=== PATIENT | female | born 1940 | race Caucasian/White ===

== ENCOUNTER 2019-12-16 11:49 | Emergency (ER) | payer MEDICARE, SELFPAY ==
--- NOTE | 2019-12-16 12:03 | ED_ITS ---
HPI - Headache General Stated Complaint: Headache Related Data Home Medications Medication Instructions Recorded Confirmed rivaroxaban 20 mg tablet 20 mg PO DAILY 06/07/19 06/07/19 Allergies Allergy/AdvReac Type Severity Reaction Status Date / Time No Known Allergies Allergy Unverified 12/06/19 09:04 [facility] Social History Social History Smoking status: Never smoker Alcohol intake: never MDM - Headache MDM Narrative Medical decision making narrative: Patient was made aware prior to triage that she would have to go to the ER for further evaluation with head CT due to recent fall and chronic headache since the injury, approximately 10 days ago. Patient refused to continue check-in and triage and wanted to go straight to the emergency room to avoid a weight. Patient was alert, ambulating without difficulty, and no obvious neuro defect notable. Patient left via private car with her . stated they would be going to [facility]. Discharge Plan Discharge Prescriptions: No Action albuterol sulfate [Ventolin HFA] 90 mcg/actuation HFA aerosol inhaler 2 puff INHALATION Q4H PRN (Reason: shortness of breath or wheezing) Qty: 6.7 RF: 1 Xarelto 20 mg tablet 20 mg PO DAILY RF: 0 rosuvastatin 10 mg tablet 10 mg PO DAILY Qty: 90 RF: 3 valsartan-hydrochlorothiazide 320-12.5 mg tablet 1 tablet PO DAILY Qty: 90 RF: 3 zafirlukast 20 mg tablet 20 mg PO Q12H Qty: 180 RF: 3 donepezil [Aricept] 10 mg tablet 10 mg PO ONCE Qty: 90 RF: 3 diltiazem HCl [Cardizem CD] 240 mg capsule,extended release 24hr 240 mg PO DAILY Qty: 90 RF: 3 budesonide-formoterol [Symbicort] 160-4.5 mcg/actuation HFA aerosol inhaler See Rx Instructions .ROUTE .COMPLEX Qty: 10.2 RF: 1 levothyroxine [Synthroid] 88 mcg tablet 88 mcg PO DAILY Qty: 90 RF: 1 memantine [Namenda] 5 mg tablet 5 mg PO QAM Qty: 90 RF: 2 mirtazapine 15 mg tablet See Rx Instructions .ROUTE .COMPLEX Qty: 90 RF: 1
--- NOTE | 2019-12-16 12:03 | PC.NURSE ---
Decided to go to the ER see [place] [facility] note
== END 2019-12-16 12:03 | disposition left against medical advice (07) ==
LOC: EXPGLEN 11:54
PROVIDERS: Emergency Provider Nurse Practitioner Family; PCP Internal Medicine
DX: Z53.21 Procedure and treatment not carried out due to patient leaving prior to being seen by health care provider (principal)
CPT/HCPCS: 99199

== ENCOUNTER 2019-12-16 12:14 | Emergency (ER) | payer MEDICARE, SELFPAY ==
--- NOTE | ~2019-12-16 | CT_ITS ---
EXAMINATION: CT brain wo con INDICATION: Head injury COMPARISON: 08/01/2017 TECHNIQUE: Standard unenhanced head CT. The dose-length product (DLP) was 605.33 mGy-cm. The mA was a djusted according to patient size. Iterative reconstruction technique was employed. FINDINGS: There is no acute intraparenchymal hemorrhage. No evidence of mass lesion. No evidence of a cute infarction. There is mild periventricular and subcortical hypodensity probably related to small vessel ischemic disease. There is mild prominence of the sulci and ventricles related to cerebral atr ophy. Intracranial calcified cerebral atherosclerosis is noted. There are no extra-axial collections. There is no mass effect or midline shift. The orbits and soft tissues are unremarkable. There is ne ar complete opacification of the visualized paranasal sinuses. The mastoid air cells are completely o pacified. IMPRESSION: 1. No acute intracranial abnormality. 2. Sinusitis and mastoiditis. Reviewed, dictated and finalized at location A.
--- NOTE | ~2019-12-16 | CT_ITS ---
EXAMINATION: CT cervical spine wo con DATE: 12/16/2019 12:59 INDICATION: Head injury TECHNIQUE: Computed tomography (CT) of the cervical spine was performed without intravenous contrast. The dose-length product (DLP) was 379.34 mGy-cm. Automated exposure control and iterative reconstruc tion technique were employed. COMPARISON: None FINDINGS: There are 2 mm of anterolisthesis of C4 on C5 and 2 mm of retrolisthesis of C6 on C7. There is near complete loss of intervertebral disc space height at C5-6 and C6-7. The vertebral body heigh ts are maintained. The odontoid is intact. There is moderate to severe multilevel facet and uncoverte bral joint osteoarthritis. The prevertebral soft tissues are normal. Small degenerative osteophytes p roject from the anterior endplates of multiple vertebral bodies. IMPRESSION: 1. Moderate to severe cervical spondylosis without acute findings. Reviewed, dictated and finalized at location A.
[2019-12-16 12:18] VITALS: BP 119/94; PULSE 57; RESP 16; TEMP 36.4; O2SAT 100
[2019-12-16 13:11] LABS: Basophils Absolute Auto 0.1 K/mm3 (0.0-0.1); Basophils Percent Auto 0.5 % (0.2-1.2); Eosinophils Absolute Auto 0.4 K/mm3 (0-0.3); Eosinophils Percent Auto 4.1 % (0-4.4); Hematocrit 41.2 % (37.0-47.0); Hemoglobin 13.4 g/dL (12.0-15.0); Immature Granulocyte Absolute 0.03 K/mm3 (0.00-0.031); Immature Granulocyte Percent A 0.3 % (0-0.5); Lymphocytes Absolute Auto 1.32 K/mm3 (0.9-3.2); Lymphocytes Percent Auto 14.1 % (18.3-44.2); Mean Corpuscular HGB Conc 32.5 g/dl (32-36); Mean Corpuscular Hemoglobin 32.4 pg (26-34); Mean Corpuscular Volume 99.5 fl (80-100); Mean Platelet Volume 11.3 fl (7.4-10.4); Monocytes Absolute Auto 0.8 K/mm3 (0.1-0.6); Neutrophils Absolute Auto 6.7 K/mm3 (1.3-6.7); Platelet Count Result 269 k/mm3 (150-375); Red Blood Count 4.14 M/mm3 (4.2-5.4); White Blood Count 9.4 K/mm3 (4.5-10.0)
[2019-12-16 13:22] LABS: Alanine Aminotransferase 23 U/L (4-35); Albumin Level 3.9 g/dL (3.5-5.1); Alkaline Phosphatase 96 U/L (38-126); Anion Gap 9.1 mmol/L (7-16); Aspartate Amino Transferase 24 U/L (14-36); Bilirubin,Total 0.4 mg/dL (0.2-1.3); Blood Urea Nitrogen 21 mg/dL (7-17); Carbon Dioxide 28 mmol/L (22-30); Chloride 105 mmol/L (98-107); Estimated CRCL calculation 46 ml/min; Estimated Glomerular Filt Rate 60; Glucose 133 mg/dL (65-105); INR 1.8; Potassium 4.1 mmol/L (3.4-5.0); Prothrombin Time 20.4 Seconds (11.1-14.7); Sodium 138 mmol/L (137-145)
[2019-12-16 13:23] LABS: Partial Thromboplastin Time 39.9 SECONDS (22.3-36.8)
[2019-12-16 13:32] VITALS: BP 142/80; PULSE 62; RESP 11; O2SAT 100
--- NOTE | 2019-12-16 13:50 | PC.NURSE ---
ERP at bedside for assessment.
[2019-12-16 13:52] VITALS: BP 153/76; PULSE 58; RESP 13; O2SAT 99
--- NOTE | 2019-12-16 13:57 | ED.HA ---
HPI - Headache General Chief Complaint: Headache Stated Complaint: headache, fell and hit head 10 days ago Time Seen by Provider: 12/16/19 13:35 History of Present Illness HPI Narrative: fall 10 days ago. Struck the back of her head and upper back. She has had posterior headache since the fall. She tried tylenol with mild improvement. No weakness, numbness, syncope. She is on xarelto Related Data Home Medications Medication Instructions Recorded Confirmed rivaroxaban 20 mg tablet 20 mg PO DAILY 06/07/19 06/07/19 ergocalciferol (vitamin D2) WEEKLY 12/16/19 [Vitamin D2] omega 1-ipr-qbm-fish oil [Fish Oil] cap PO HS 12/16/19 rivaroxaban [Xarelto] mg DAILY 12/16/19 Allergies Allergy/AdvReac Type Severity Reaction Status Date / Time No Known Allergies Allergy Verified 12/16/19 12:23 Review of Systems Review of Systems: All systems reviewed & are unremarkable except as noted in HPI and below Constitutional: Constitutional: Denies chills, Denies fatigue, Denies fever(s) and Denies weakness Eyes: Eyes: Denies change in vision ENT: Denies sore throat Cardiovascular: Cardiovascular: Denies chest pain Respiratory: Respiratory: Denies cough and Denies dyspnea Gastrointestinal: Gastrointestinal: Denies nausea and Denies vomiting Musculoskeletal: Musculoskeletal: Reports back pain Neurologic: Denies vertigo, Denies dizziness, Denies syncope and Reports headache(s) [facility] Social History Social History Smoking status: Never smoker Alcohol intake: never Gender identity (if verbalized by the patient): Female Exam Const: General: healthy appearing, no acute distress and alert Orientation/consciousness: patient oriented x3 HENMT: Other: Posterior scalp tenderness. No mastoid tenderness. No sinus tenderness. Eyes: Conjunctivae: conjunctivae normal Pupils: Equal, round and reactive pupils present EOM: EOMs intact bilaterally Neck: Neck: normal visual inspection and no lymphadenopathy Chest: Chest palpation & inspection: no tenderness Resp: Effort & Inspection: normal respiratory effort Auscultation: clear to auscultation bilaterally, no rales, no rhonchi and no wheezes Cardio: Jugular venous distension: no JVD Rate: regular rate Rhythm: regular rhythm Heart sounds: no murmurs GI: Inspection: non-distended GI Palp: Yes Soft to palpation and No Tenderness to palpation present (GI) Skin: General skin exam: normal color Neuro: General: patient oriented x3, moves all extremities and CN's II-XI intact bilaterally Speech: normal speech Extrem: General: no edema Psych: Appearance: well kempt Affect: normal affect Course Vital Signs Vital signs: Vital Signs Temperature 36.4 C L 12/16/19 12:18 Pulse Rate 57 L 12/16/19 12:18 Respiratory Rate 16 12/16/19 12:18 Blood Pressure 119/94 H 12/16/19 12:18 Pulse Oximetry 100 12/16/19 12:18 Temperature 36.4 C L 12/16/19 12:18 Pulse Rate 61 12/16/19 14:40 Respiratory Rate 16 12/16/19 14:40 Blood Pressure 140/70 12/16/19 14:40 Pulse Oximetry 97 12/16/19 14:40 MDM - Headache MDM Narrative Medical decision making narrative: CT shows sinusitis and mastoiditis. She reports chronic sinus congestion which is not currently bothering her. I believe this a chronic finding and does not require any treatment if she is not symptomatic. Based on symptom description I believe that she is having headaches due to muscle tightness. She is not able to take NSAIDs. I will prescribe a small amount fiorcet Medical Records Attestation: I reviewed the patient's medical records. Lab Data Attestation: I reviewed the patient's lab results. Result diagrams: 12/16/19 13:04 12/16/19 13:04 Labs: Lab Results 12/16/19 12/16/19 12/16/19 Range/Units 13:04 13:04 13:04 WBC 9.4 (4.5-10.0) K/mm3 RBC 4.14 L (4.2-5.4) M/mm3 Hgb 13.4 (12.0-15.0)
[2019-12-16 14:23] VITALS: BP 140/70; PULSE 61; RESP 13; O2SAT 98
[2019-12-16 14:40] VITALS: BP 140/70; PULSE 61; RESP 16; O2SAT 97
== END 2019-12-16 14:42 | disposition home or self-care (01) ==
PROVIDERS: Emergency Medicine; Emergency Provider Emergency Medicine; PCP Internal Medicine
DX: J32.9 Chronic sinusitis, unspecified (principal); R51 Headache; M47.812 Spondylosis without myelopathy or radiculopathy, cervical region; Z79.01 Long term (current) use of anticoagulants; I48.91 Unspecified atrial fibrillation; J45.909 Unspecified asthma, uncomplicated
CPT/HCPCS: 36415; 70450; 72125; 80053; 85025; 85610; 85730; 99284; A9270

== ENCOUNTER → 2020-10-09 12:51 | Emergency (ER) | payer MEDICARE, SELFPAY ==
--- NOTE | 2020-10-09 12:55 | ED_ITS ---
HPI - Chest Pain General Stated Complaint: chest pain Related Data Home Medications Medication Instructions Recorded Confirmed ergocalciferol (vitamin D2) WEEKLY 12/16/19 08/04/20 [Vitamin D2] omega 8-vsk-pzr-fish oil [Fish Oil] cap PO HS 12/16/19 08/04/20 Allergies Allergy/AdvReac Type Severity Reaction Status Date / Time No Known Allergies Allergy Verified 08/04/20 08:30 PMF Family History Family History Father Patient's father is Acute myocardial infarction Family history of heart disease in male family member before age 55 Mother Cerebrovascular accident Social History Social History Alcohol intake: never Gender identity (if verbalized by the patient): Female MDM - Chest Pain MDM Narrative Medical decision making narrative: Patient's spouse signed patient in to seen for cardiac consultation expecting blood work and was told blood work was not offered. Patient's spouse stated that she was recently seen by her director peoplesoft and everything checked out . However spouse was assuming she was going to have a cardiac work-up at the facility. Patient requested to go to the ER prior to triage. Patient was advised to be seen in the facility and transferred to ER but chose not waste the time . Patient was in n distress and spouse stated he will take to her ER, [facility]. Discharge Plan Discharge Patient Disposition: Left Without Being Sn Triaged Prescriptions: No Action donepezil [Aricept] 10 mg tablet 10 mg PO ONCE Qty: 90 RF: 2 albuterol sulfate [Ventolin HFA] 90 mcg/actuation HFA aerosol inhaler 2 puff INHALATION Q4H PRN (Reason: shortness of breath or wheezing) Qty: 6.7 RF: 1 omega 4-qrt-bsg-fish oil [Fish Oil] 1,200 (144-216) mg Capsule PO HS RF: 0 ergocalciferol (vitamin D2) [Vitamin D2] 1,250 mcg (50,000 unit) Capsule WEEKLY RF: 0 hwlfnvikvy-fqyvfpzmqmwur-wuei 50-325-40 mg capsule 1 cap PO Q6H PRN (Reason: pain) Qty: 10 RF: 0 Xarelto 20 mg tablet 20 mg PO DAILY Qty: 90 RF: 3 valsartan-hydrochlorothiazide 320-12.5 mg tablet 1 tablet PO DAILY Qty: 90 RF: 3 mirtazapine 15 mg tablet See Rx Instructions .ROUTE .COMPLEX Qty: 90 RF: 3 diltiazem HCl [Cardizem CD] 240 mg capsule,extended release 24hr 240 mg PO DAILY Qty: 90 RF: 3 zafirlukast 20 mg tablet See Rx Instructions .ROUTE .COMPLEX Qty: 180 RF: 3 budesonide-formoterol [Symbicort] 160-4.5 mcg/actuation HFA aerosol inhaler See Rx Instructions .ROUTE .COMPLEX Qty: 10.2 RF: 1 rosuvastatin 10 mg tablet See Rx Instructions .ROUTE .COMPLEX Qty: 90 RF: 3 levothyroxine 88 mcg tablet See Rx Instructions .ROUTE .COMPLEX Qty: 90 RF: 1 memantine [Namenda] 5 mg tablet 5 mg PO QAM Qty: 90 RF: 2 Follow-up/Referrals: UNKNOWN,DOCTOR [Non-Staff] - Time of Disposition: 12:55
== END | disposition left against medical advice (07) ==
LOC: EXPGLEN 12:56
PROVIDERS: Emergency Provider Nurse Practitioner Family; PCP Internal Medicine
DX: Z53.21 Procedure and treatment not carried out due to patient leaving prior to being seen by health care provider (principal)
CPT/HCPCS: 99199

== ENCOUNTER 2020-10-09 13:13 | Emergency (ER) | payer MEDICARE, SELFPAY ==
[2020-10-09] VITALS (21 sets, daily range): BP systolic 141–159; BP diastolic 80–103; PULSE 61–79; RESP 11–23; TEMP 36.5; O2SAT 97–100
--- NOTE | ~2020-10-09 | XR_ITS ---
EXAMINATION: XR chest 2V DATE: 10/09/2020 13:48 INDICATION: Midline chest pain. TECHNIQUE: Frontal and lateral views of the chest were obtained. COMPARISON: Chest 2 views 07/17/2018 FINDINGS: There is mild atelectasis in the lower lung zones. No pleural effusion or pneumothorax. The heart size is normal. IMPRESSION: 1. Mild atelectasis in the lower lung zones. Reviewed, dictated and finalized at location A.
--- NOTE | 2020-10-09 13:19 | ECG_ITS ---
Measurements Intervals [place] Rate: 72 P: [place]: 0 QRS: 31 QRSD: 73 T: -11 QT: 382 QTc: 421 Interpretive Statements ATRIAL FIBRILLATION LOW QRS VOLTAGE IN PRECORDIAL LEADS BASELINE ARTIFACT- I, II, III, AVR, AVF, V3 ABNORMAL ECG Electronically Signed On 10-09-2020 15:30:58 CDT by Aneehs Santa D.O.
--- NOTE | 2020-10-09 13:35 | ED.SOB ---
HPI - SOB/Dyspnea General Chief Complaint: Chest Pain Stated Complaint: chest pain Time Seen by Provider: 10/09/20 13:21 Source: patient Mode of arrival: ambulatory Limitations: no limitations Related Data Home Medications Medication Instructions Recorded Confirmed ergocalciferol (vitamin D2) WEEKLY 12/16/19 08/04/20 [Vitamin D2] omega 8-dkn-jug-fish oil [Fish Oil] cap PO HS 12/16/19 08/04/20 Allergies Allergy/AdvReac Type Severity Reaction Status Date / Time No Known Allergies Allergy Verified 08/04/20 08:30 PMFSH Family History Family History Father Patient's father is Acute myocardial infarction Family history of heart disease in male family member before age 55 Mother Cerebrovascular accident Social History Social History Alcohol intake: never Gender identity (if verbalized by the patient): Female Course Vital Signs Vital signs: Vital Signs Temperature 36.5 C 10/09/20 13:20 Pulse Rate 64 10/09/20 13:20 Respiratory Rate 14 10/09/20 13:20 Blood Pressure 159/84 H 10/09/20 13:20 Pulse Oximetry 99 10/09/20 13:20 Temperature 36.5 C 10/09/20 13:20 Pulse Rate 64 10/09/20 13:20 Respiratory Rate 14 10/09/20 13:20 Blood Pressure 159/84 H 10/09/20 13:20 Pulse Oximetry 99 10/09/20 13:20 MDM - SOB/Dyspnea Lab Data Result diagrams: 10/09/20 13:29 10/09/20 13:29 Labs: Lab Results 10/09/20 10/09/20 10/09/20 Range/Units 13:29 13:29 13:29 WBC Pending RBC Pending Hgb Pending Hct Pending MCV Pending MCH Pending MCHC Pending RDW Pending Plt Count Pending MPV Pending Immature Gran % (Auto) Pending Neut % (Auto) Pending Lymph % (Auto) Pending [place] % (Auto) Pending Eos % (Auto) Pending Baso % (Auto) Pending Lymph # (Auto) Pending [place] # (Auto) Pending Eos # (Auto) Pending Baso # (Auto) Pending Abs Immat Gran (auto) Pending Absolute Neuts (auto) Pending Absolute Nucleated RBC Pending Nucleated RBC % Pending PT Pending INR Pending APTT Pending Sodium Pending Potassium Pending Chloride Pending Carbon Dioxide Pending Anion Gap Pending BUN Pending Creatinine Pending Estim Creat Clear Calc Pending Estimated GFR Pending Glucose Pending Calcium Pending Troponin I Pending Discharge Plan Discharge Prescriptions: No Action donepezil [Aricept] 10 mg tablet 10 mg PO ONCE Qty: 90 RF: 2 albuterol sulfate [Ventolin HFA] 90 mcg/actuation HFA aerosol inhaler 2 puff INHALATION Q4H PRN (Reason: shortness of breath or wheezing) Qty: 6.7 RF: 1 omega 7-alw-gqg-fish oil [Fish Oil] 1,200 (144-216) mg Capsule PO HS RF: 0 ergocalciferol (vitamin D2) [Vitamin D2] 1,250 mcg (50,000 unit) Capsule WEEKLY RF: 0 bordiqonui-yulozwqbmdcil-hfdf 50-325-40 mg capsule 1 cap PO Q6H PRN (Reason: pain) Qty: 10 RF: 0 Xarelto 20 mg tablet 20 mg PO DAILY Qty: 90 RF: 3 valsartan-hydrochlorothiazide 320-12.5 mg tablet 1 tablet PO DAILY Qty: 90 RF: 3 mirtazapine 15 mg tablet See Rx Instructions .ROUTE .COMPLEX Qty: 90 RF: 3 diltiazem HCl [Cardizem CD] 240 mg capsule,extended release 24hr 240 mg PO DAILY Qty: 90 RF: 3 zafirlukast 20 mg tablet See Rx Instructions .ROUTE .COMPLEX Qty: 180 RF: 3 budesonide-formoterol [Symbicort] 160-4.5 mcg/actuation HFA aerosol inhaler See Rx Instructions .ROUTE .COMPLEX Qty: 10.2 RF: 1 rosuvastatin 10 mg tablet See Rx Instructions .ROUTE .COMPLEX Qty: 90 RF: 3 levothyroxine 88 mcg tablet See Rx Instructions .ROUTE .COMPLEX Qty: 90 RF: 1 memantine [Namenda] 5 mg tablet 5 mg PO QAM Qty: 90 RF: 2
--- NOTE | 2020-10-09 13:35 | ED.CHESTPAIN ---
HPI - Chest Pain General Chief Complaint: Chest Pain Stated Complaint: chest pain Time Seen by Provider: 10/09/20 13:21 Source: patient Mode of arrival: ambulatory Limitations: no limitations History of Present Illness HPI narrative: Patient is an 80-year-old female complaining of chest pain, substernal, sharp, nonradiating, worse with deep breaths, 5 out of 10, currently denies any pain, accompanied by shortness of breath that started 3 days ago. states that the patient recently saw her web support engineer and was told that her heart is good . Patient currently denies any symptoms, denies any chest pain or shortness of breath at this time. Patient denies any abdominal pain, nausea, vomiting, diaphoresis, fever or chills. Patient has a history of atrial fib and currently on Xarelto. Related Data Home Medications Medication Instructions Recorded Confirmed ergocalciferol (vitamin D2) WEEKLY 12/16/19 08/04/20 [Vitamin D2] omega 5-qiv-fpc-fish oil [Fish Oil] cap PO HS 12/16/19 08/04/20 Allergies Allergy/AdvReac Type Severity Reaction Status Date / Time No Known Allergies Allergy Verified 08/04/20 08:30 Review of Systems Review of Systems: All systems reviewed & are unremarkable except as noted in HPI and below Constitutional: Constitutional: Denies body ache(s), Denies chills, Denies excessive sweating, Denies fatigue, Denies fever(s), Denies headache(s), Denies lethargy, Denies malaise, Denies weakness and Denies weight loss Eyes: Eyes: Denies blurry vision, Denies change in vision and Denies loss of vision ENT: Denies dizziness, Denies ear discharge, Denies headache(s), Denies lip swelling, Denies epistaxis, Denies nasal congestion, Denies neck pain, Denies throat swelling and Denies tongue swelling Cardiovascular: Cardiovascular: Denies chest pain with activity, Denies diaphoresis, Denies rapid heart rate, Denies edema, Denies irregular heart rhythm, Denies lightheadedness, Denies palpitations and Denies dyspnea on exertion Respiratory: Respiratory: Denies chest congestion, Denies cough, Denies hemoptysis and Denies dyspnea on exertion Gastrointestinal: Gastrointestinal: Denies abdominal pain, Denies melena, Denies hematochezia, Denies diarrhea, Denies nausea, Denies vomiting and Denies hematemesis Musculoskeletal: Musculoskeletal: Denies abnormal gait, Denies deformity, Denies joint swelling, Denies limited range of motion, Denies neck pain and Denies numbness Neurologic: Denies Abnormal speech present, Denies abnormal gait, Denies confusion, Denies dizziness, Denies headache(s), Denies focal weakness, Denies loss of vision, Denies numbness, Denies Other visual disturbances, Denies Sensory deficit (Neuro) and Denies weakness Psychiatric: Psychiatric: Denies confusion, Denies depression, Denies auditory hallucinations, Denies homicidal ideation and Denies suicidal ideation Endocrine: Endocrine: Denies cold intolerance, Denies excessive sweating, Denies fatigue, Denies heat intolerance and Denies palpitations Hematologic/Lymphatic: Hematologic/Lymphatic: Denies easy bleeding and Denies easy bruising Allergic/Immunologic: Allergic/Immunologic: Denies lip swelling, Denies throat swelling and Denies tongue swelling PMFSH Family History Family History Father Patient's father is Acute myocardial infarction Family history of heart disease in male family member before age 55 Mother Cerebrovascular accident Social History Social History Alcohol intake: never Gender identity (if verbalized by the patient): Female Comments Past medical history: Atrial fib, hypertension, hyperlipidemia, dementia Family history: Noncontributory Social history: None smoker no EtOH use, lives with at home Exam Const: General: cooperative, healthy appearing, comfortable, no acute distress, well developed,
[2020-10-09 13:37] LABS: Basophils Absolute Auto 0.1 K/mm3 (0.0-0.1); Basophils Percent Auto 0.5 % (0.2-1.2); Eosinophils Absolute Auto 0.4 K/mm3 (0-0.3); Eosinophils Percent Auto 3.8 % (0-4.4); Hematocrit 45.4 % (37.0-47.0); Hemoglobin 14.9 g/dL (12.0-15.0); Immature Granulocyte Absolute 0.04 K/mm3 (0.00-0.031); Immature Granulocyte Percent A 0.3 % (0-0.5); Lymphocytes Percent Auto 13.8 % (18.3-44.2); Mean Corpuscular HGB Conc 32.8 g/dl (32-36); Mean Corpuscular Hemoglobin 32.3 pg (26-34); Mean Corpuscular Volume 98.3 fl (80-100); Mean Platelet Volume 11.9 fl (7.4-10.4); Monocytes Percent Auto 8.6 % (2.6-8.5); Neutrophils Absolute Auto 8.4 K/mm3 (1.3-6.7); Platelet Count Result 278 k/mm3 (150-375); Red Blood Count 4.62 M/mm3 (4.2-5.4); Red Cell Distribution Width 13.9 % (11.5-14.5); White Blood Count 11.6 K/mm3 (4.5-10.0)
[2020-10-09 13:46] LABS: INR 1.6; Prothrombin Time 19.5 Seconds (11.1-14.7)
[2020-10-09 13:47] LABS: Partial Thromboplastin Time 31.2 SECONDS (22.3-36.8)
[2020-10-09 13:48] LABS: Anion Gap 7 mmol/L (8-16); Blood Urea Nitrogen 16 mg/dL (7-17); Calcium 9.8 mg/dL (8.4-10.2); Carbon Dioxide 27 mmol/L (22-30); Chloride 107 mmol/L (98-107); Estimated CRCL calculation 50 ml/min; Estimated Glomerular Filt Rate > 60; Glucose 109 mg/dL (65-105); Sodium 141 mmol/L (137-145)
--- NOTE | 2020-10-09 13:48 | PC.NURSE ---
called lab and talk to Alyssa and added on BNP [id number]
[2020-10-09 13:58] LABS: Troponin I < 0.012 ng/mL (0.000-0.034)
[2020-10-09 14:07] LABS: NT Pro B Type Natriuretic Pept 1010 pg/mL (5-100)
[2020-10-09 18:13] LABS: Troponin I < 0.012 ng/mL (0.000-0.034)
== END 2020-10-09 18:55 | disposition home or self-care (01) ==
PROVIDERS: Emergency Medicine; Emergency Provider Emergency Medicine; PCP Internal Medicine
DX: R07.89 Other chest pain (principal); I48.91 Unspecified atrial fibrillation; I10 Essential (primary) hypertension; E78.5 Hyperlipidemia, unspecified; F03.90 Unspecified dementia, unspecified severity, without behavioral disturbance, psychotic disturbance, mood disturbance, and anxiety; Z79.01 Long term (current) use of anticoagulants; R94.31 Abnormal electrocardiogram [ECG] [EKG]
CPT/HCPCS: 36415; 71046; 80048; 83880; 84484; 85025; 85610; 85730; 93005; 99284

== ENCOUNTER 2020-10-15 05:16 | Emergency (ER) | payer MEDICARE, SELFPAY ==
--- NOTE | ~2020-10-15 | CT_ITS ---
EXAMINATION: CT abdomen pelvis w con DATE: 10/15/2020 06:04 INDICATION: Right upper quadrant abdominal pain TECHNIQUE: Computed tomography (CT) of the abdomen and pelvis was performed with 100 mL Omnipaque-350 intravenous contrast. Automated exposure control and iterative reconstruction technique were employe d. The dose-length product was 1337.67 mGy-cm. COMPARISON: None FINDINGS: Mild bronchiectatic changes in the right lower lobe. Heart size is normal. No pericardial or pleural effusion. Several heterogeneous hepatic steatosis in the right hepatic lobe with more focal fat at th e ligamentum teres. Gallbladder, spleen, pancreas, bilateral adrenal glands and kidneys are normal. T here is moderate colonic diverticulosis with a sigmoid predominance. There is no adjacent inflammato ry change to suggest diverticulitis. No bowel obstruction. The appendix is not visualized. No pericec al inflammatory change to suggest acute appendicitis. Bladder is normal. The uterus is not identified and has likely been surgically resected. No free intraperitoneal gas or fluid. No pathologically enl arged abdominal or pelvic lymphadenopathy. Mild lumbar dextrocurvature with severe spondylosis. Mild to moderate bilateral hip osteoarthritis. IMPRESSION: 1. No acute intra-abdominal/pelvic process. 2. Diverticulosis. Reviewed, dictated and finalized at location A.
[2020-10-15 05:26] VITALS: BP 184/70; PULSE 72; RESP 16; O2SAT 98
--- NOTE | 2020-10-15 05:37 | ECG_ITS ---
Measurements Intervals [place] Rate: 70 P: VT: 0 QRS: 53 QRSD: 80 T: -40 QT: 406 QTc: 440 Interpretive Statements ATRIAL FIBRILLATION BORDERLINE ST-T WAVE ABNORMALITY- ANTEROLAT/INF LEADS BASELINE ARTIFACT- I, II, III, AVR, AVL, AVF, V1-V6 ABNORMAL ECG Electronically Signed On 10-15-2020 8:26:51 CDT by Aneesh Santa D.O.
[2020-10-15] MEDS: SODIUM CHLORIDE 0.9% IV 1,000 ML 999 ML IV CONT (05:47)
[2020-10-15] MEDS: ONDANSETRON INJ 4 MG/2 ML VIAL IV PUSH (05:47)
[2020-10-15] MEDS: MORPHINE SULFATE (*CRX) 4 MG/ML INJ IV PUSH (05:47)
--- NOTE | 2020-10-15 05:56 | ED.GENADULT ---
HPI - General Adult General Chief complaint: Abdominal Pain Stated complaint: abd pain Time Seen by Provider: 10/15/20 05:30 History of Present Illness HPI narrative: Patient 80-year-old female presents the emergency department with chief complaint of abdominal pain. Patient states that she started having pain in the last couple of days more localized in the right upper quadrant. The patient saw her primary care physician yesterday and was scheduled for an outpatient ultrasound. The patient states throughout the night she started having worsening discomfort in the right upper quadrant states that she also was having nausea and was belching. The patient denies diarrhea states that her only prior surgical history on her abdomen is 2 sections. Related Data Home Medications Medication Instructions Recorded Confirmed ergocalciferol (vitamin D2) WEEKLY 12/16/19 08/04/20 [Vitamin D2] Allergies Allergy/AdvReac Type Severity Reaction Status Date / Time No Known Allergies Allergy Verified 08/04/20 08:30 Review of Systems Review of Systems: Narrative: A 10 system review of systems was completed on the patient and is negative except for what is stated in the HPI. Nursing and ancillary documentation was reviewed. [facility], [facility] Family History Family History Father Patient's father is Acute myocardial infarction Family history of heart disease in male family member before age 55 Mother Cerebrovascular accident Social History Social History Smoking status: Never smoker Alcohol intake: never Gender identity (if verbalized by the patient): Female Comments Past medical history significant for hypertension hypothyroidism and asthma. Social history the patient lives with her denies smoking Exam Narrative: Exam Narrative: GENERAL: Well-appearing, well-nourished, and in no acute distress. HEAD: Normocephalic, atraumatic. EYES: PERRLA and EOMI. ENT: Nares clear, no rhinorrhea or epistaxis. Mucous membranes moist. NECK: Supple. CHEST: Clear to auscultation. No respiratory distress. HEART: Regular rate and rhythm. No murmur heard. Normal peripheral pulses. ABDOMEN: Soft, tender to palpation in the right upper quadrant, nondistended, normal active bowel sounds. EXTREMITIES: Normal range of motion. No edema. SKIN: Warm, dry, no rash. NEURO: No focal deficits. Alert and oriented x3. PSYCH: Normal mood and affect. Course Course Emergency Course: CT scan of the abdomen pelvis showed no evidence of acute abnormality Vital Signs Vital signs: Vital Signs Pulse Rate 72 10/15/20 05:26 Respiratory Rate 16 10/15/20 05:26 Blood Pressure 184/70 H 10/15/20 05:26 Pulse Oximetry 98 10/15/20 05:26 Pulse Rate 72 10/15/20 05:26 Respiratory Rate 16 10/15/20 05:26 Blood Pressure 184/70 H 10/15/20 05:26 Pulse Oximetry 98 10/15/20 05:26 Medical Decision Making Vital Signs Vital Signs: Vital Signs Pulse Rate 72 10/15/20 05:26 Respiratory Rate 16 10/15/20 05:26 Blood Pressure 184/70 H 10/15/20 05:26 Pulse Oximetry 98 10/15/20 05:26 Pulse Rate 72 10/15/20 05:26 Respiratory Rate 16 10/15/20 05:26 Blood Pressure 184/70 H 10/15/20 05:26 Pulse Oximetry 98 10/15/20 05:26 Lab Data Result diagrams: 10/15/20 05:53 10/15/20 05:53 Labs: Lab Results 10/15/20 10/15/20 10/15/20 Range/Units 05:53 05:53 05:53 WBC 7.6 (4.5-10.0) K/mm3 RBC 4.92 (4.2-5.4) M/mm3 Hgb 15.7 H (12.0-15.0) g/dL Hct 48.0 H (37.0-47.0) % MCV 97.6 (80-100) fl MCH 31.9 (26-34) pg MCHC 32.7 (32-36) g/dl RDW 13.7 (11.5-14.5) % Plt Count 258 (150-375) k/mm3 MPV 11.5 H (7.4-10.4) fl Immature Gran % (Auto) 0.4 (0-0.5) % Neut % (Auto) 68.8 (45.5-73.1) % Lymph % (Auto)
[2020-10-15 06:09] LABS: Chloride 105 mmol/L (98-107)
[2020-10-15 06:10] LABS: Basophils Percent Auto 0.5 % (0.2-1.2); Eosinophils Absolute Auto 0.2 K/mm3 (0-0.3); Eosinophils Percent Auto 2.9 % (0-4.4); Hemoglobin 15.7 g/dL (12.0-15.0); Immature Granulocyte Absolute 0.03 K/mm3 (0.00-0.031); Immature Granulocyte Percent A 0.4 % (0-0.5); Lymphocytes Percent Auto 19.7 % (18.3-44.2); Mean Corpuscular HGB Conc 32.7 g/dl (32-36); Mean Corpuscular Hemoglobin 31.9 pg (26-34); Mean Corpuscular Volume 97.6 fl (80-100); Mean Platelet Volume 11.5 fl (7.4-10.4); Monocytes Absolute Auto 0.6 K/mm3 (0.1-0.6); Monocytes Percent Auto 7.7 % (2.6-8.5); Neutrophils Absolute Auto 5.3 K/mm3 (1.3-6.7); Neutrophils Percent Auto 68.8 % (45.5-73.1); Platelet Count Result 258 k/mm3 (150-375); Red Blood Count 4.92 M/mm3 (4.2-5.4); Red Cell Distribution Width 13.7 % (11.5-14.5); White Blood Count 7.6 K/mm3 (4.5-10.0)
[2020-10-15 06:15] LABS: Alanine Aminotransferase 23 U/L (4-35); Albumin Level 4.2 g/dL (3.5-5.1); Alkaline Phosphatase 92 U/L (38-126); Anion Gap 10 mmol/L (8-16); Aspartate Amino Transferase 30 U/L (14-36); Bilirubin,Total 0.5 mg/dL (0.2-1.3); Blood Urea Nitrogen 13 mg/dL (7-17); Calcium 9.7 mg/dL (8.4-10.2); Carbon Dioxide 26 mmol/L (22-30); Estimated CRCL calculation 45 ml/min; Estimated Glomerular Filt Rate 60; Glucose 108 mg/dL (65-105); Lipase 81 U/L (23-300); Potassium 3.7 mmol/L (3.4-5.0); Sodium 141 mmol/L (137-145)
[2020-10-15 06:23] LABS: Troponin I < 0.012 ng/mL (0.000-0.034)
[2020-10-15 06:56] LABS: Add Urine Microscopic? YES; Appearance Urine Clear (Clear); Bilirubin Urine Negative (Negative); Blood Urine Negative (Negative); Color Urine Straw (Yellow); Glucose Urine UA Negative (Negative); Ketones Urine Trace mg/dL (Negative); Leukocyte Esterase Ur Negative LEU/UL (Negative); Nitrate Urine Negative (Negative); Protein Urine Negative (Negative); Urobilinogen Urine Negative mg/dL (<2.0)
[2020-10-15 07:01] LABS: Specific Grav Ur 1.038 (1.001-1.035); WBC Urine 0-3 /hpf (0-3)
[2020-10-15 07:02] LABS: Bacteria Urine Trace /hpf; Squamous Epithelial Cell Urine Few /hpf (Few)
[2020-10-15 08:40] VITALS: BP 167/100; PULSE 75; RESP 18; O2SAT 97
== END 2020-10-15 08:42 | disposition home or self-care (01) ==
PROVIDERS: Emergency Provider Emergency Medicine; PCP Internal Medicine
DX: R10.11 Right upper quadrant pain (principal); R11.0 Nausea; I10 Essential (primary) hypertension; E03.9 Hypothyroidism, unspecified; J45.909 Unspecified asthma, uncomplicated; K57.90 Diverticulosis of intestine, part unspecified, without perforation or abscess without bleeding; I48.91 Unspecified atrial fibrillation; R94.31 Abnormal electrocardiogram [ECG] [EKG]
CPT/HCPCS: 36415; 74177; 80053; 81001; 83605; 83690; 84484; 85025; 93005; 96361; 96374; 96375; 99284; J2270; J2405; J7030; Q9967

== ENCOUNTER 2020-10-22 07:27 | Outpatient (CLI) | payer MEDICARE, SELFPAY ==
--- NOTE | ~2020-10-22 | XR_ITS ---
EXAMINATION: XR UGI w barium swallow EXAM DATE: 10/22/2020 08:41 INDICATION: R10.10 - Upper abdominal pain, unspecified. TECHNIQUE: Limited single and double contrast barium esophagram and upper GI examination was performe d by radiologist Tim Mckeon M.D. according to patient abilities (limited mobility). Pulsed dose redu ction fluoroscopy was used with fluoroscopic time of 0.8. The DAP for this procedure was 1.6 Gycm2. A total of 107 images obtained for the exam. Correlation is made to CT scan 10/15/2020. FINDINGS: The pharynx is symmetric and without evidence of mass lesion or mucosal irregularity. Ther e is no esophageal stricture, diverticulum or mass identified. Small sliding gastroesophageal hiatal hernia with a large amount of reflux demonstrated during the examination. The stomach has a normal appearance without evidence of mass lesion, ulceration or filling defect. T here is normal rugal fold pattern. The duodenum and duodenal sweep are normal in appearance. IMPRESSION: Small hiatal hernia, large amount of reflux demonstrated. Reviewed, dictated and finalized at location A.
--- NOTE | ~2020-10-22 | US_ITS ---
US abdomen limited INDICATION: Upper abdominal pain PROCEDURE: Realtime right upper abdominal ultrasound. COMPARISON: CT dated 10/15/2020 FINDINGS: The pancreas is normal without focal mass or pancreatic ductal dilation. Liver echotexture is increased, consistent with fatty infiltration. There is normal directional flow in the portal ve in. The gallbladder is normal without stones, gallbladder wall thickening or pericholecystic fluid. Comm on bile duct measures 2.7 mm. No sonographic Jordan's sign. IMPRESSION: 1: Hepatic steatosis. Reviewed, dictated and finalized at location B. IMPRESSION: 1: Hepatic steatosis.
== END 2020-10-22 07:28 | disposition home or self-care (01) ==
LOC: ANHIMG 07:28
PROVIDERS: PCP Internal Medicine; Visit Provider Internal Medicine
DX: K76.0 Fatty (change of) liver, not elsewhere classified (principal); R10.10 Upper abdominal pain, unspecified; K44.9 Diaphragmatic hernia without obstruction or gangrene
CPT/HCPCS: 74240; 76705

== ENCOUNTER 2021-02-12 14:28 | Outpatient (CLI) | payer MEDICARE, SELFPAY ==
--- NOTE | ~2021-02-12 | DEXA_ITS ---
Bone Density Report Name: Cora Squires Age: 80 Sex: Female Ethnicity: White Date of : 1940 Indication: postmenopausal; height loss; asthma or emphysema; hysterectomy; Referring Provider: Lyndsey Davalos Study: Bone densitometry was performed. Exam Date: February 12, 2021 Accession number: [id number] Bone Density: Region BMD T-score Z-score Classification AP Spine (L1, L4) 1.245 1.9 4.6 Normal Femoral Neck (Left) 0.967 1.1 3.5 Normal Total Hip (Left) 1.118 1.4 3.6 Normal Total Hip Bilateral Avg 1.100 1.3 3.4 Normal Femoral Neck (Right) 1.019 1.5 3.9 Normal Total Hip (Right) 1.080 1.1 3.3 Normal World Health Organization criteria for BMD impression classify patients as: Normal (T-score at or above -1.0), Osteopenia (T-score between -1.0 and -2.5), or Osteoporosis (T-score at or below -2.5). 10-year Fracture Risk: FRAX not reported because: All T-scores for Spine Total, Hip Total, Femoral Neck at or above -1.0 Previous Exams: Region Exam Age BMD T-score BMD Change BMD Change Date g/cm2 vs Baseline vs Previous AP Spine(L1, L4) 02/12/2021 80 1.245 1.9 0.090(7.7%)# 0.090(7.8%)# 11/24/2006 66 1.155 1.1 -0.001(-0.1%) -0.001(-0.1%) 09/25/2001 60 1.156 1.1 Total Hip(Left) 02/12/2021 80 1.118 1.4 -0.010(-0.9%)# -0.022(-2.0%)# 11/24/2006 66 1.140 1.6 0.012(1.1%) 0.012(1.1%) 09/25/2001 60 1.128 1.5 Total Hip(Right) 02/12/2021 80 1.080 1.1 -0.028(-2.5%)# -0.048(-4.2%)# 11/24/2006 66 1.128 1.5 0.020(1.8%) 0.020(1.8%) 09/25/2001 60 1.108 1.4 *Denotes significance at 95% confidence level, LSC for AP Spine = 0.022 g/cm2, LSC for Total Hip = 0.027 g/cm2 Clinical Information Provided by Patient: Has the following medical conditions: Asthma or Emphysema, Hysterectomy Patient maximum height was 67 No regular weight bearing exercise Onset of menses at age 11 Number of children 2 Impression: The patient has normal bone mass. No significant bone loss was observed. Discussion: LOW RISK OF FRACTURE; BONE DENSITY IS WELL ABOVE THE MINIMUM DESIRABLE LEVEL AND ABOVE AVERAGE FOR AGE AND SEX AT ALL SKELETAL SITES TESTED. This person's bone density is above expected limits for age and sex. This is rarely clinically significant, but should be pursued if there are significant musculoskeletal complaints. The patient should follow a healthful lifestyle (good nutrition with adequate calcium and vi
--- NOTE | ~2021-02-12 | MM_ITS ---
EXAMINATION: MM screening jose BI w juanita HISTORY: Screening TECHNIQUE: Craniocaudal and mediolateral oblique 3-D tomosynthesis images were obtained and synthetic 2-D images were generated. CAD analysis was submitted and interpreted. COMPARISON: Comparison to multiple prior studies sequentially, with oldest reviewed study dated 04/15. BREAST PARENCHYMAL COMPOSITION: The breasts are almost entirely fatty. FINDINGS: There is no evidence of suspicious mass, calcification, or architectural distortion to sugg est malignancy in either breast. There has been no suspicious interval change. IMPRESSION: 1. No mammographic evidence of malignancy. 2. Recommend routine screening mammography in one year. BI-RADS Category 1: Negative Reviewed, dictated and finalized at location A.
== END 2021-02-12 14:29 | disposition home or self-care (01) ==
PROVIDERS: PCP Internal Medicine; Visit Provider Nurse Practitioner
DX: Z12.31 Encounter for screening mammogram for malignant neoplasm of breast (principal); Z78.0 Asymptomatic menopausal state
CPT/HCPCS: 77063; 77067; 77080

== ENCOUNTER 2022-11-06 10:08 | Emergency (ER) | payer MEDICARE, SELFPAY ==
--- NOTE | ~2022-11-06 | XR_ITS ---
XR foot RT min 3V DATE: 11/06/2022 11:30 INDICATION: Fall. Bruising, swelling TECHNIQUE: 4 views of right foot COMPARISON: None FINDINGS: Mild plantar calcaneal enthesopathy. Mild osteoarthritic change at the first metatarsophalangeal joint and to a greater extent at the tars ometatarsal joints. No fracture or dislocation or bone destruction is evident. IMPRESSION: No fracture is detected Plantar calcaneal enthesopathy Polyarticular osteoarthritis Reviewed, dictated and finalized at location A.
--- NOTE | ~2022-11-06 | XR_ITS ---
XR ankle RT min 3V DATE: 11/06/2022 11:29 INDICATION: Fall. Bruising and swelling. TECHNIQUE: 4 views of right ankle COMPARISON: None FINDINGS: Mild plantar calcaneal enthesopathy. No fracture or dislocation of the ankle or disruption of the ankle mortise. No periosteal reaction or bone destruction. IMPRESSION: No fracture or dislocation Reviewed, dictated and finalized at location A. IMPRESSION: No fracture or dislocation
[2022-11-06 10:59] VITALS: BP 125/59; PULSE 68; RESP 17; TEMP 36.4; O2SAT 98
--- NOTE | 2022-11-06 12:06 | ED.FALL ---
HPI - Fall General Chief Complaint: Fall Stated Complaint: fall, right foot pain Time Seen by Provider: 11/06/22 11:29 History of Present Illness HPI Narrative: 82-year-old female presents to the emergency room today for evaluation of injury to right foot and ankle. She had a ground-level fall on . She has bruising and swelling to the right great toenail and mild swelling to the right ankle. She has increased pain with weightbearing. She is normally ambulatory with a walker. Denies any other injury from the fall. No neck or back pain. denies head injury. Related Data Home Medications Medication Instructions Recorded Confirmed ergocalciferol (vitamin D2) 1,250 WEEKLY 12/16/19 07/07/22 mcg (50,000 unit) capsule (Vitamin D2) Allergies Allergy/AdvReac Type Severity Reaction Status Date / Time No Known Allergies Allergy Verified 07/07/22 07:03 Review of Systems Review of Systems: CONSTITUTIONAL: Denies fever, chills, or sweats. CARDIOVASCULAR: Denies chest pain, palpitations, or edema. RESPIRATORY: Denies cough or dyspnea. GASTROINTESTINAL: Denies abdominal pain, nausea, vomiting, or diarrhea. GENITOURINARY: Denies dysuria or hematuria. SKIN: Denies rash or itching. MUSCULOSKELETAL: As per HPI. NEUROLOGIC: Denies headache, numbness, dizziness, or weakness. PSYCHIATRIC: Denies anxiety or depression. [facility] Past Medical History Medical History COVID-19 Family History Family History Father Patient's father is Acute myocardial infarction Family history of heart disease in male family member before age 55 Mother Cerebrovascular accident Social History Social History Smoking packs per day: 0.3 Smoking cigarettes per day: 6.0 Years smoked: 4 Smoking pack-years: 1.20 Smoking status: Former smoker Alcohol intake: never Substance use: never Substance use type: does not use Lack of Transportation: No Lack of Food: Never True Current Housing: I Have Housing Concerned About Future Housing: No Difficulty Paying Gas/Electric Bills: No Difficulty Paying for Meds: No Currently Unemployed: No Education: High School Diploma/GED Difficulty w/ Childcare or Family Care: No Living arrangements: alone Occupation/Education: retired Gender identity (if verbalized by the patient): Female Exam Narrative: GENERAL: Well-appearing, well-nourished, and in no acute distress. HEAD: Normocephalic, atraumatic. EYES: PERRLA and EOMI. NECK: Supple. No adenopathy or masses. CHEST: Clear to auscultation. No respiratory distress. No wheezes rales or rhonchi HEART: Regular rate and rhythm. No murmur heard. Normal peripheral pulses. ABDOMEN: Soft, nontender, nondistended, normal active bowel sounds. EXTREMITIES: Right foot noted to have moderate swelling and bruising at the base of the great toe and around the MTP joint. Mild swelling noted to the right lateral ankle. Normal range of motion of the right ankle without pain. No tenderness with palpation of the ankle. Reports tenderness with palpation of the MTP joint of the great toe. SKIN: Warm, dry, no rash. NEURO: No focal deficits. Alert and oriented x3. PSYCH: Normal mood and affect. Course Vital Signs Vital signs: Vital Signs Temperature 36.4 C L 11/06/22 10:59 Pulse Rate 68 11/06/22 10:59 Respiratory Rate 17 11/06/22 10:59 Blood Pressure 125/59 L 11/06/22 10:59 Pulse Oximetry 98 11/06/22 10:59 Oxygen Delivery Room Air 11/06/22 10:59 Temperature 36.4 C L 11/06/22 10:59 Pulse Rate 68 11/06/22 10:59 Respiratory Rate 17 11/06/22 10:59 Blood Pressure 125/59 L 11/06/22 10:59 Pulse Oximetry 98 11/06/22 10:59 Oxygen Delivery Room Air 11/06/22 10:59 MDM - Fall MDM Narrative Medical d
== END 2022-11-06 12:52 | disposition home or self-care (01) ==
PROVIDERS: Emergency Provider Nurse Practitioner Family; PCP Internal Medicine
DX: S90.111A Contusion of right great toe without damage to nail, initial encounter (principal); S93.401A Sprain of unspecified ligament of right ankle, initial encounter; W18.30XA Fall on same level, unspecified, initial encounter; Z87.891 Personal history of nicotine dependence
CPT/HCPCS: 73610; 73630; 99283

== ENCOUNTER 2023-01-11 09:52 | Outpatient (CLI) | payer MEDICARE, SELFPAY ==
[2023-01-11 10:22] LABS: Hematocrit 42.8 % (37.0-47.0); Hemoglobin 13.6 g/dL (12.0-15.0); Mean Corpuscular HGB Conc 31.8 g/dl (32-36); Mean Corpuscular Hemoglobin 32.2 pg (26-34); Mean Corpuscular Volume 101.4 fl (80-100); Platelet Count Result 292 k/mm3 (150-375); Red Blood Count 4.22 M/mm3 (4.2-5.4); Red Cell Distribution Width 14.1 % (11.5-14.5); White Blood Count 10.4 K/mm3 (4.5-10.0)
[2023-01-11 10:37] LABS: Alanine Aminotransferase 20 U/L (6-35); Alkaline Phosphatase 90 U/L (38-126); Anion Gap 9 mmol/L (8-16); Aspartate Amino Transferase 23 U/L (14-36); Bilirubin,Total 0.5 mg/dL (0.2-1.3); Blood Urea Nitrogen 16 mg/dL (7-17); Calcium 9.5 mg/dL (8.4-10.2); Carbon Dioxide 27 mmol/L (22-30); Chloride 103 mmol/L (98-107); Cholesterol 157 mg/dL (0-200); Estimated Glomerular Filt Rate > 60; Glucose 111 mg/dL (65-110); HDL Direct 54 mg/dL; Potassium 3.9 mmol/L (3.4-5.0); Sodium 139 mmol/L (137-145); Triglycerides 161 mg/dL (<150)
[2023-01-11 10:47] LABS: LDL Cholesterol Direct 69 mg/dL
[2023-01-11 11:06] LABS: Thyroid Stimulating Hormone 0.989 uIU/mL (0.465-4.680)
[2023-01-11 11:10] LABS: Vitamin D 25 Hydroxy 53.2 ng/mL
== END 2023-01-11 09:53 | disposition home or self-care (01) ==
LOC: ANHLAB 09:55
PROVIDERS: PCP Family Medicine; Visit Provider Family Medicine
DX: E78.5 Hyperlipidemia, unspecified (principal); E03.9 Hypothyroidism, unspecified; E55.9 Vitamin D deficiency, unspecified; G47.00 Insomnia, unspecified; I10 Essential (primary) hypertension; I48.91 Unspecified atrial fibrillation; K21.9 Gastro-esophageal reflux disease without esophagitis; K76.0 Fatty (change of) liver, not elsewhere classified; R41.3 Other amnesia
CPT/HCPCS: 36415; 80053; 80061; 82306; 84443; 85027

== ENCOUNTER 2023-02-14 08:02 | Outpatient (CLI) | payer MEDICARE, SELFPAY ==
--- NOTE | ~2023-02-14 | MM_ITS ---
EXAMINATION: MM screening jose BI w juanita HISTORY: Screening mammogram TECHNIQUE: Craniocaudal and mediolateral oblique 3-D tomosynthesis images were obtained and synthetic 2-D images were generated. CAD analysis was submitted and interpreted. COMPARISON: 02/12/2021, 02/08/2019 BREAST PARENCHYMAL COMPOSITION:The breasts are almost entirely fatty FINDINGS: No suspicious mass, calcification, or architectural distortion are identified in either steph ast to suggest malignancy. There has been no suspicious interval change. IMPRESSION: No mammographic evidence of malignancy. Recommend routine screening mammography in one year. BI-RADS Category 1: Negative Reviewed, dictated and finalized at location .
--- NOTE | ~2023-02-14 | DEXA_ITS ---
Bone Density Report Name: TORITO CRAIG Age: 82 Sex: Female Ethnicity: White Date of : 1940 Indication: postmenopausal; screening for osteoporosis; height loss; asthma or emphysema; hysterectomy; Referring Provider: ALICIA FINK Study: Bone densitometry was performed. Exam Date: February 14, 2023 Accession number: [id number] Bone Density: Region BMD T-score Z-score Classification AP Spine(L1, L4) 1.225 1.7 4.5 Normal Femoral Neck (Left) 0.970 1.1 3.6 Normal Total Hip (Left) 1.068 1.0 3.3 Normal Femoral Neck (Right) 0.931 0.7 3.2 Normal Total Hip (Right) 1.023 0.7 3.0 Normal Total Hip Mean 1.045 0.9 3.2 Normal World Health Organization criteria for BMD impression classify patients as: Normal (T-score at or above -1.0), Osteopenia (T-score between -1.0 and -2.5), or Osteoporosis (T-score at or below -2.5). 10-year Fracture Risk: FRAX not reported because: All T-scores for Spine Total, Hip Total, Femoral Neck at or above -1.0 Clinical Information Provided by Patient: Has used the following medications: Vitamin D Has the following medical conditions: Asthma or Emphysema, Hysterectomy Patient maximum height was 66 Menopause Age: 48 Does not regularly consume dairy products Onset of menses at age 12 Number of children 2 Impression: The patient has normal bone mass. Discussion: LOW RISK OF FRACTURE; BONE DENSITY IS WELL ABOVE THE MINIMUM DESIRABLE LEVEL AND ABOVE AVERAGE FOR AGE AND SEX AT ALL SKELETAL SITES TESTED. This person's bone density is above expected limits for age and sex. This is rarely clinically significant, but should be pursued if there are significant musculoskeletal complaints. The patient should follow a healthful lifestyle (good nutrition with adequate calcium and vitamin D, and appropriate weight-bearing exercise). Follow-Up: Consider repeating this study in 5 years or sooner if there is some new clinical indication. Reported by: [facility] on 02/14/2023 8:42:00 AM. Reviewed, dictated and finalized at location AAmber LYNN
== END 2023-02-14 08:03 | disposition home or self-care (01) ==
PROVIDERS: PCP Family Medicine; Visit Provider Obstetrics & Gynecology Gynecology
DX: Z12.31 Encounter for screening mammogram for malignant neoplasm of breast (principal); Z78.0 Asymptomatic menopausal state
CPT/HCPCS: 77063; 77067; 77080

== ENCOUNTER 2023-08-11 07:55 | Emergency (ER) | payer MEDICARE, SELFPAY ==
--- NOTE | ~2023-08-11 | CT_ITS ---
EXAMINATION: CT knee RT wo con DATE: 08/11/2023 09:03 INDICATION: Right knee pain. TECHNIQUE: Computed tomography (CT) of the right knee was performed without intravenous contrast. Aut omated exposure control and iterative reconstruction technique were employed. The dose-length product was 595.97 mGy-cm. COMPARISON: Right knee radiographs 08/11/2023 FINDINGS: Bone alignment is normal. No acute fracture. There is an old healed fracture of fibular nec k. There is severe osteoarthritis of lateral compartment, moderate osteoarthritis of medial compartme nt, and mild osteoarthritis of patellofemoral compartment. There is chondrocalcinosis of the menisci. There is a large knee joint effusion with loose bodies. There is a moderate-sized Banerjee's cyst. IMPRESSION: 1. Severe right knee osteoarthritis. 2. Large right knee joint effusion. 3. Moderate-sized Banerjee's cyst. Reviewed, dictated and finalized at location A.
--- NOTE | ~2023-08-11 | XR_ITS ---
EXAMINATION: XR knee RT 3V DATE: 08/11/2023 08:34 INDICATION: Right knee pain and instability TECHNIQUE: Three views of the right knee were obtained. COMPARISON: None. FINDINGS: There is moderate tricompartmental osteoarthritis of the knee. There is a large knee joint effusion. There is calcification of the medial meniscus. There is mild deformity of the proximal fibu lar shaft of unclear chronicity. IMPRESSION: 1. Osteoarthritis and large knee joint effusion. Consider further evaluation with CT to assess the fi bular findings as well as the knee. Reviewed, dictated and finalized at location A. IMPRESSION: 1. Osteoarthritis and large knee joint effusion. Consider further evaluation wi CT to assess the fibular findings as well as the knee.
[2023-08-11 08:00] VITALS: BP 170/73; PULSE 79; RESP 16; TEMP 36.4; O2SAT 97
[2023-08-11 08:45] VITALS: BP 157/71; PULSE 66; RESP 14; O2SAT 96
[2023-08-11 10:29] VITALS: BP 149/76; PULSE 65; RESP 14; TEMP 36.4; O2SAT 98
--- NOTE | 2023-08-11 15:09 | ED.FALL ---
HPI - Fall General Chief Complaint: Fall Stated Complaint: Fall Time Seen by Provider: 08/11/23 08:08 History of Present Illness HPI Narrative: Patient presents here after a fall, she had fallen several days ago when her right knee gave out, has been giving out on and off for the last few years. Some swelling and pain. No head trauma. Related Data Home Medications Medication Instructions Recorded Confirmed ergocalciferol (vitamin D2) 1,250 WEEKLY 12/16/19 02/17/23 mcg (50,000 unit) capsule (Vitamin D2) Allergies Allergy/AdvReac Type Severity Reaction Status Date / Time No Known Allergies Allergy Verified 08/11/23 08:04 Review of Systems Review of Systems: CONST: No fever. HEENT: No sore throat C/V: No chest pain RESP: No cough GI: No abdominal pain : No dysuria. M/S: Right knee pain SKIN: No rash. NEURO: [No headache or focal numbness or weakness] PSYCH: [No depression] PMFSH Past Medical History Medical History COVID-19 Family History Family History Father Patient's father is Acute myocardial infarction Family history of heart disease in male family member before age 55 Mother Cerebrovascular accident Social History Social History Smoking packs per day: 0.3 Smoking cigarettes per day: 6.0 Years smoked: 4 Smoking pack-years: 1.20 Smoking status: Former smoker Alcohol intake: never Substance use: never Substance use type: does not use Lack of Transportation: No Lack of Food: Never True Current Housing: I Have Housing Concerned About Future Housing: No Difficulty Paying Gas/Electric Bills: No Difficulty Paying for Meds: No Currently Unemployed: No Education: High School Diploma/GED Difficulty w/ Childcare or Family Care: No Living arrangements: alone Occupation/Education: retired Gender identity (if verbalized by the patient): Female Exam Narrative: EXAMINATION OF ORGAN SYSTEMS/BODY AREAS: Constitutional: Vital signs per nursing GENERAL:[No acute distress, non-toxic appearing.] HEAD: Normal with no signs of head trauma. EYES: EOMI, conjunctiva normal ENT: Hearing grossly intact LUNGS: Nonlabored breathing. HEART: [Regular rate and rhythm], normal DP pulse ABD: Nondistended EXT: Normal range of motion, swelling to right knee with some tenderness medial knee SKIN: [No rashes or lesions.] NEURO: [Alert and oriented x 3. No gross focal sensory or strength deficits.] PSYCH: Normal affect Course Vital Signs Vital signs: Vital Signs Temperature 97.6 F 08/11/23 08:00 Pulse Rate 79 08/11/23 08:00 Respiratory Rate 16 08/11/23 08:00 Blood Pressure 170/73 H 08/11/23 08:00 Pulse Oximetry 97 08/11/23 08:00 Oxygen Delivery Room Air 08/11/23 08:00 Temperature 97.6 F 08/11/23 10:29 Pulse Rate 65 08/11/23 10:29 Respiratory Rate 14 08/11/23 10:29 Blood Pressure 149/76 H 08/11/23 10:29 Pulse Oximetry 98 08/11/23 10:29 Oxygen Delivery Room Air 08/11/23 08:00 MDM - Fall MDM Narrative Medical decision making narrative: Patient presenting here after mechanical fall pain to her right knee, on exam it is swollen with some slight tenderness to palpation, neurovascularly intact, x-ray with bad arthritis and effusion, no obvious fracture, radiologist recommends CT so this is ordered, again thankfully no acute fracture. Patient placed in Bal wrap and I have let the patient follow up with Orthopedics as she may need surgery in the future. Stable for discharge at this time with return precautions they are agreeable to plan. Discharge Plan Discharge Clinical Impression: Injury of knee Patient Disposition: Home, Self-Care Condition: Stable Instructions: Antibiotic Form, Knee Sprain (ED) Additional Instructions:
== END 2023-08-11 10:29 | disposition home or self-care (01) ==
PROVIDERS: Emergency Provider Emergency Medicine; PCP Family Medicine
DX: S89.91XA Unspecified injury of right lower leg, initial encounter (principal); Z86.16 Personal history of COVID-19; Z87.891 Personal history of nicotine dependence; W18.39XA Other fall on same level, initial encounter
CPT/HCPCS: 73562; 73700; 99284